=== PATIENT | male | born 1940 | race Caucasian/White ===

== ENCOUNTER 2019-01-29 10:09 | Inpatient (IN) | payer OTHER ==
[~2019-01-29] VITALS: Ht 180.3 cm; Wt 80.7 kg
[~2019-01-29 10:09] MED LIST: BUSP10TA3 PO; DICL75TA5 PO; METH2.5T PO; MOME220A2 INH; OLOD4MIS2 IH; PRIM250T32 PO; SERT-131 PO
[2019-01-29 10:19] VITALS: BP_SYST 113
--- NOTE | 2019-01-29 10:27 | NUR ---
Patient to ER bed 6 to gown for evaluation. Side rails up. Report given to VARGAS De Jesus.
--- NOTE | 2019-01-29 10:50 | NUR ---
ER at bedside examining patient.
[2019-01-29] MEDS ORDERED: NACL 0.9% 1,000 ML IV ONE (10:52)
--- NOTE | 2019-01-29 10:52 | NUR ---
Patient arrived via POV with at bedside. Patient c/c of urinary frequency, pain and burning upon urination. No blood tinge per patient. Per , he was up and down every 30 minutes throughout the night. Patient states he only dribbled urine and had the urgency shortly after. Patient denies any penile discharge, or new sexual partners. Patient states no abdominal pain. Will continue to follow up and monitor.
[2019-01-29] MEDS ORDERED: D5W 1,000 ML IV ONE (11:15)
[2019-01-29 11:17] LABS: BASOPHILS # (AUTO) 0.1 K/uL (0.0-0.2); BASOPHILS % (AUTO) 0.2 % (0.0-2.0); LYMPHOCYTES # (AUTO) 0.5 K/uL (1.0-5.5); MEAN CORPUSCULAR HEMOGLOBIN 31 pg (27-31); MEAN CORPUSCULAR HGB CONC 34 % (32-36); MEAN CORPUSCULAR VOLUME 91 fL (79.0-98.0); MONOCYTES # (AUTO) 1.9 K/uL (0.0-1.0); MONOCYTES % (AUTO) 7.8 % (1.7-9.3); NEUTROPHILS # (AUTO) 21.5 K/uL (1.8-7.7); PLATELET COUNT (AUTO) 261 K/uL (130-430); RED BLOOD CELL COUNT(AUTO) 4.53 MIL/uL (4.2-6.2); RED CELL DISTRIBUTION WIDTH 14.9 % (9.0-15.0); WHITE BLOOD COUNT (AUTO) 23.9 K/uL (4.8-10.8)
--- NOTE | 2019-01-29 11:30 | NUR ---
# 20 gauge angiocath placed to LAC. Use of asceptic technique. Opsite placed over site. Blood return noted. Blood for lab drawn from site. Flushed with 10 cc of normal saline. No evidence of infiltration noted. Patient tolerated well.
[2019-01-29 11:53] LABS: ALANINE AMINOTRANSFERASE 92 U/L (12-78); ALBUMIN 3.3 g/dL (3.4-4.8); ANION GAP 9 (5-15); ASPARTATE AMINOTRANSFERASE 83 U/L (10-37); CALCIUM 8.6 mg/dL (8.4-11.0); CHLORIDE 95 mmol/L (98-107); CREATININE 1.05 mg/dL (0.55-1.30); GLUCOSE 137 mg/dL (70-99); SODIUM SERUM 129 mmol/L (136-145); TOTAL BILIRUBIN 0.7 mg/dL (0.0-1.0); UREA NITROGEN, BLOOD 30 mg/dL (8-21)
--- NOTE | 2019-01-29 12:30 | NUR ---
Patient able to provide urine, specimen sent to lab.
[2019-01-29 12:42] LABS: BILIRUBIN,URINE NEGATIVE (NEGATIVE); BLOOD, URINE 3+ (NEGATIVE); CLARITY/URINE HAZY (CLEAR); COLOR,URINE YELLOW (YELLOW); GLUCOSE,URINE NEGATIVE (NEGATIVE); KETONES,URINE NEGATIVE (NEGATIVE); LEUKOCYTE ESTERASE ,URINE 3+ (NEGATIVE); NITRITE, URINE POSITIVE (NEGATIVE); PROTEIN URINE TRACE (NEGATIVE); UROBILINOGEN,URINE 0.2 (0.2-1.0)
[2019-01-29 13:15] LABS: BACTERIA,URINE MANY /HPF (None Seen); RBC,URINE 20-50 /HPF (0-3); WBC,URINE 50-80 /HPF (0-3)
[2019-01-29] MEDS ORDERED: LEVOFLOXACIN 500 MG/D5W 100 ML IV ONE (14:00)
--- NOTE | 2019-01-29 14:21 | NUR ---
Patient states he feels like he had a temperature, 99.7 tympanic. Removed patient blankets. Patient receiving IV ABX.
[2019-01-29] MEDS ORDERED: NACL 0.9% 500 ML IV ONE (14:45)
--- NOTE | 2019-01-29 14:47 | NUR ---
3rd lactic acid draw order placed. Continuing to follow sepsis protocol.
[2019-01-29] MEDS ORDERED: ACETAMINOPHEN 500 MG TABLET PO ONE (15:00)
[2019-01-29] MEDS ORDERED: FOLI-43 PO (15:15)
--- NOTE | 2019-01-29 15:16 | NUR ---
Recheck on patients temperature of 100.7, given 1g of tylenol as ordered.
--- NOTE | 2019-01-29 15:20 | NUR ---
Medication reconciliation completed with information provided by Patient's . Any prior medication reconciliation on file was reviewed and corrected.
--- NOTE | 2019-01-29 15:31 | NUR ---
Patient will be admitted to care of Dr. Grace. Admitted to Med/Surg unit. Awaiting room assignment by extension service specialist in charge. Belongings list completed. Summary report printed. Report will be given at bedside.
--- NOTE | 2019-01-29 16:10 | NUR ---
ADMISSION NOTE Received patient from ER via chip, received report from Liza KAYE. Patient admitted with diagnosis of Sepsis. Patient oriented to hospital routine, call light, toileting and safety-patient verbalized understanding.
[2019-01-29 17:00] VITALS: BP_SYST 108
[2019-01-29] MEDS ORDERED: ONDANSETRON HCL 4 MG/2 ML VIAL IVP PRN (17:00)
[2019-01-29] MEDS ORDERED: MORPHINE 2 MG/ML INJ. SYRINGE IVP PRN (17:00)
--- NOTE | 2019-01-29 17:00 | NUR ---
RN OPENING NOTE RECEIVED SBAR REPORT FROM ADMISSION NURSE AT BEDSIDE. PT AAOX4, VS STABLE ON ROOM AIR, NO COMPLAINT OF PAIN. PT'S AT BEDSIDE.
[2019-01-29 17:30] VITALS: BP_SYST 110
[2019-01-29] MEDS: PIPERACILLIN/TAZO 3.375/DEX-IS 50 ML IV SCH ×2 (18:10→23:04)
[2019-01-29] MEDS: NACL 0.9% 1,000 ML IV SCH (18:10)
--- NOTE | 2019-01-29 18:49 | NUR ---
RN CLOSING NOTE. PT RESTING IN BED WITH NO COMPLAINT OF DISTRESS. BED IN LOWEST POSITION, BED ALARM ACTIVE, CALL LIGHT WITHIN REACH.
--- NOTE | 2019-01-29 19:40 | NUR ---
OPENING NOTES Pt and endorsement received from day shift nurse. Pt is awake, alert and lying in bed. Pt on IVF of NS at 100ml/hr and infusing well on right AC G20. No complains of pain or discomfort at this time. No signs of acute distress or SOB noted. Encouraged to use call light when needed. Safety precautions in place with 3 side rails up, bed alarm on, locked and in lowest position. Call light with pt. Will continue to monitor.
[2019-01-29 20:50] VITALS: BP_SYST 131
[2019-01-29] MEDS: busPIRone HCL 5 MG TABLET PO SCH (20:53)
[2019-01-29] MEDS: PRIMIDONE 250 MG TABLET PO SCH (20:53)
[2019-01-29] MEDS: ACETAMINOPHEN 325 MG TABLET PO PRN (20:54)
--- NOTE | 2019-01-29 20:54 | NUR ---
TYLENOL 650MG GIVEN Pt had a fever with a temp of 102.1. Tylenol 650mg PO given as ordered. Cold packs covered in towel placed under the head. Thick blankets removed. IVF patent and infusing well. No signs of acute distress or SOB noted. Safety precautions in place and call light with pt. Will continue to monitor.
--- NOTE | 2019-01-29 22:00 | NUR ---
ROUNDS Rechecked temp and is 100.7. Pt refused cold packs instead gave him cold wash cloth and place on top of his head. Encouraged pt to drink more water, pt verbalizes understanding. Safety precautions in place and call light with pt. Will continue to monitor.
--- NOTE | 2019-01-29 23:00 | NUR ---
ROUNDS Rechecked temp and is 99.8. No signs of acute distress or SOB noted. IVF infusing well. Safety precautions in place and call light with pt. Will continue to monitor.
--- NOTE | 2019-01-29 23:53 | NUR ---
PAGED PAGING THE GRINDER TENDER PHYSICIAN DR. ABRAMS, SPOKE WITH JAZMINE
--- NOTE | 2019-01-30 00:24 | NUR ---
PAGED x2 SECOND PAGE SENT OUT TO THE HOP PICKER PHYSICIAN
--- NOTE | 2019-01-30 00:45 | NUR ---
SPOKE TO DR. ABRAMS Spoke to Dr. Abrams regarding pt unable to sleep and wants sleeping pill. Dr. Abrams ordered Ambien 5mg PO HS PRN for insomnia. Read back order and will carry out.
[2019-01-30 01:02] VITALS: BP_SYST 129
[2019-01-30] MEDS: ZOLPIDEM TARTRATE 5 MG TABLET PO PRN ×2 (01:09→21:07)
[2019-01-30] MEDS: NACL 0.9% 1,000 ML IV SCH ×3 (04:21→23:00)
[2019-01-30] MEDS: ACETAMINOPHEN 325 MG TABLET PO PRN ×3 (04:27→23:45)
--- NOTE | 2019-01-30 04:27 | NUR ---
TYLENOL 650MG GIVEN Pt had a low grade fever with a temp of 100.7. Tylenol 650mg PO given as ordered. Cold wash cloths placed under the head. IVF infusing well. No signs of acute distress or SOB noted. Safety precautions in place and call light with pt. Will continue to monitor.
--- NOTE | 2019-01-30 05:27 | NUR ---
ROUNDS Rechecked temp and is 98.9. No complains of pain and no signs of acute distress noted. IVF infusing well. Safety precautions in place and call light with pt. Will continue to monitor.
[2019-01-30] MEDS: PIPERACILLIN/TAZO 3.375/DEX-IS 50 ML IV SCH ×4 (05:28→23:46)
[2019-01-30 06:10] LABS: HEMATOCRIT 37.1 % (36-54); HEMOGLOBIN 12.5 g/dL (14.0-18.0); MEAN CORPUSCULAR HEMOGLOBIN 31 pg (27-31); MEAN CORPUSCULAR HGB CONC 34 % (32-36); MEAN CORPUSCULAR VOLUME 91 fL (79.0-98.0); PLATELET COUNT (AUTO) 205 K/uL (130-430); RED BLOOD CELL COUNT(AUTO) 4.09 MIL/uL (4.2-6.2); WHITE BLOOD COUNT (AUTO) 20.4 K/uL (4.8-10.8)
[2019-01-30 06:38] LABS: ALANINE AMINOTRANSFERASE 64 U/L (12-78); ALBUMIN 2.4 g/dL (3.4-4.8); ASPARTATE AMINOTRANSFERASE 47 U/L (10-37); CALCIUM 8.1 mg/dL (8.4-11.0); CHLORIDE 100 mmol/L (98-107); CREATININE 0.98 mg/dL (0.55-1.30); GLUCOSE 117 mg/dL (70-99); POTASSIUM 3.6 mmol/L (3.5-5.1); SODIUM SERUM 134 mmol/L (136-145); TOTAL BILIRUBIN 0.4 mg/dL (0.0-1.0); UREA NITROGEN, BLOOD 20 mg/dL (8-21)
--- NOTE | 2019-01-30 07:03 | NUR ---
CLOSING NOTES Pt is resting in bed with both eyes closed, with visible chest rise and fall with unlabored breathing noted. No complains of pain or discomfort. No signs of acute distress or SOB noted. IVF patent and infusing well. All needs attended throughout the shift. Safety precautions maintained with 3 side rails up, bed alarm on, locked and in lowest position. Call light with pt. Will endorse to day shift nurse.
[2019-01-30 07:17] LABS: ANION GAP 9 (5-15)
--- NOTE | 2019-01-30 07:50 | NUR ---
AM ASSESSMENT. PT ABLE TO EXPRESS BASIC NEEDS, GETS TO THE BATHROOM WITH MILD ASSIST, WALKER READILY AVAILABLE, IVF INFUSING NS AT 100 ML PER HR, SITE CLEAR, TEMP 99.8, NO COMPLAINTS OF BODY DISCOMFORT ASIDE FROM TREMORS TO HIS HANDS WHEN GETTING OUT OF HIS BED.
[2019-01-30 08:00] VITALS: BP_SYST 127
[2019-01-30] MEDS: PRIMIDONE 250 MG TABLET PO SCH ×2 (09:00→20:19)
[2019-01-30] MEDS: FOLIC ACID 1 MG TABLET PO SCH (09:06)
[2019-01-30] MEDS: busPIRone HCL 5 MG TABLET PO SCH ×2 (09:08→20:19)
[2019-01-30] MEDS: SERTRALINE HCL 50 MG TABLET PO SCH (09:08)
[2019-01-30 10:18] LABS: BAND % (MANUAL) 5 % (0-6); LYMPHOCYTES % (MANUAL) 4 % (20-46)
[2019-01-30 10:19] LABS: BASOPHILS % (MANUAL) 0 % (0-2); EOSINOPHILS % (MANUAL) 0 % (0-7); MONOCYTES % (MANUAL) 2 % (0-11)
--- NOTE | 2019-01-30 11:04 | NUR ---
CONSULTATION PAGED/CALLED Reason for Consultation: [] SEPSIS Person Who was Notified: [] CHERRIE Consulting Physician: [] DR AGUSTIN AKHTAR Supervisor Packing Room Specialty: [] ID Ordering Physician: [] DR URIOSTEGUI
[2019-01-30 12:00] VITALS: BP_SYST 140
[2019-01-30] MEDS ORDERED: GENTAMICIN SULFATE 300 MG in NS 100 ML IV ONE (12:00)
--- NOTE | 2019-01-30 14:13 | NUR ---
PAIN. PT LYING DOWN IN HIS BED, HAVING CONVERSATION WITH AT BEDSIDE, PT COMPLAINED OF HEADACHE, 6/10 SCALE, TEMP 99.9, MEDICATED WITH TYLENOL 650 MG TABLET.
--- NOTE | 2019-01-30 15:50 | NUR ---
ULTRA SOUND. PT JUST HAD KIDNEY ULTRASOUND AT BEDSIDE.
[2019-01-30 16:00] VITALS: BP_SYST 129
--- NOTE | 2019-01-30 17:04 | NUR ---
Dietitian Recommendations * Recommend continuing regular diet LP, RD Please refer to Nutrition Assessment for details.
--- NOTE | 2019-01-30 17:45 | NUR ---
ACTIVITY. PT SEEN COMING BACK TO HIS BED, USING A WALKER FOR SUPPORT, ALL NEEDS ATTENDED.
--- NOTE | 2019-01-30 18:50 | NUR ---
IV. NEW IV INSERTED IN LEFT HAND, 20 GAUGE CATHETER USED, GOOD BLOOD RETURN NOTED. IV IN LEFT A/C LEAKING AND D/CD.
--- NOTE | 2019-01-30 19:10 | NUR ---
OPENING NOTES Late entry due to patient care. Bedside report received from dayshift nurse. Patient received lying in bed, AOx4, watching TV. No s/s of acute distress noted. Patient denies any pain or discomfort. Breathing is even and unlabored. IVF infusing well. IV site patent. Call light with patient, instructed to call for any assistance, patient verbalized understanding. Bed is locked and at lowest position. Will continue to monitor.
[2019-01-30 20:00] VITALS: BP_SYST 137
--- NOTE | 2019-01-30 21:00 | NUR ---
ROUNDS/SLEEPING PILL Patient requested to have sleeping pill. Ambien to be administered per PRN order. Call light with patient. Will continue to monitor.
--- NOTE | 2019-01-30 23:00 | NUR ---
ROUNDS Patient in bed sleeping at this time. No signs of discomfort noted. Chest rise and fall even bilaterally. Call light with patient. Will continue to monitor.
--- NOTE | 2019-01-31 01:00 | NUR ---
ROUNDS Patient asleep. IVF infusing well. Call light with patient. Will continue to monitor.
--- NOTE | 2019-01-31 03:00 | NUR ---
ROUNDS Patient in bed sleeping at this time. No s/s of acute distress noted. Breathing even and unlabored. Call light with patient. Will continue to monitor.
[2019-01-31 03:31] VITALS: BP_SYST 149
--- NOTE | 2019-01-31 05:00 | NUR ---
IVF/IV ANTIBIOTICS New bag of IV and scheduled IV antibiotics hung at this time. IV site patent, no signs of infiltration or infection noted. Call light with patient. Will continue to monitor.
[2019-01-31] MEDS: PIPERACILLIN/TAZO 3.375/DEX-IS 50 ML IV SCH ×3 (05:05→17:53)
[2019-01-31] MEDS: NACL 0.9% 1,000 ML IV SCH ×2 (05:06→21:25)
--- NOTE | 2019-01-31 06:47 | NUR ---
CLOSING NOTES Patient in bed sleeping at this time. No s/s of acute distress noted. Breathing even and unlabored. IVF infusing well. IV site patent, no signs of infiltration or infection noted. All needs met throughout shift. Fall and safety precautions maintained throughout shift. Will continue to monitor until patient care is endorsed to oncoming dayshift nurse.
[2019-01-31 06:54] LABS: ALANINE AMINOTRANSFERASE 47 U/L (12-78); ALBUMIN 2.3 g/dL (3.4-4.8); ANION GAP 11 (5-15); ASPARTATE AMINOTRANSFERASE 28 U/L (10-37); CHLORIDE 96 mmol/L (98-107); CREATININE 0.73 mg/dL (0.55-1.30); GLUCOSE 126 mg/dL (70-99); POTASSIUM 3.1 mmol/L (3.5-5.1); SODIUM SERUM 127 mmol/L (136-145); TOTAL BILIRUBIN 0.5 mg/dL (0.0-1.0); UREA NITROGEN, BLOOD 16 mg/dL (8-21)
--- NOTE | 2019-01-31 07:50 | NUR ---
AM ASSESSMENT. PT IN BED, TEMP TAKEN BY TEMPORAL THERMOMETER 101, THEN USED AN ORAL THERMOMETER 98.4, NO COMPLAINTS OF BODY DISCOMFORTS, IVF INFUSING NS AT 100 ML PER HR, WILL CONTINUE TO MONITOR.
[2019-01-31 08:00] VITALS: BP_SYST 152
[2019-01-31 08:56] LABS: HEMOGLOBIN 12.8 g/dL (14.0-18.0); MEAN CORPUSCULAR HEMOGLOBIN 30 pg (27-31); MEAN CORPUSCULAR HGB CONC 34 % (32-36); MEAN CORPUSCULAR VOLUME 91 fL (79.0-98.0); PLATELET COUNT (AUTO) 204 K/uL (130-430); RED CELL DISTRIBUTION WIDTH 14.8 % (9.0-15.0)
[2019-01-31 08:57] LABS: BASOPHILS % (AUTO) 0.2 % (0.0-2.0); EOSINOPHILS % (AUTO) 0.1 % (0.0-4.0); LYMPHOCYTES # (AUTO) 0.4 K/uL (1.0-5.5); LYMPHOCYTES % (AUTO) 2.3 % (20.5-51.5); MONOCYTES # (AUTO) 0.6 K/uL (0.0-1.0); MONOCYTES % (AUTO) 3.2 % (1.7-9.3); NEUTROPHILS # (AUTO) 17.3 K/uL (1.8-7.7); NEUTROPHILS % (AUTO) 94.2 % (40.0-70.0); WHITE BLOOD COUNT (AUTO) 18.4 K/uL (4.8-10.8)
[2019-01-31] MEDS: SERTRALINE HCL 50 MG TABLET PO SCH (09:10)
[2019-01-31] MEDS: FOLIC ACID 1 MG TABLET PO SCH (09:10)
[2019-01-31] MEDS: busPIRone HCL 5 MG TABLET PO SCH ×2 (09:10→21:25)
[2019-01-31] MEDS: PRIMIDONE 250 MG TABLET PO SCH ×2 (09:11→21:26)
--- NOTE | 2019-01-31 10:15 | NUR ---
ACTIVITY. PT GETS OUT OF BED USING A WALKER, TO THE BATHROOM, HX JOEY KNEE SURGERY.
[2019-01-31] MEDS ORDERED: LACT1CAP57 PO (11:58)
[2019-01-31] MEDS ORDERED: LEVAQUIN PO (11:58)
[2019-01-31 12:00] VITALS: BP_SYST 147
[2019-01-31] MEDS: LEVOFLOXACIN 500 MG/D5W 100 ML IV SCH (12:33)
--- NOTE | 2019-01-31 13:17 | NUR ---
D/C. PT MADE AWARE OF DISCHARGING HIM HOME. HE STATED "MY DOCTOR ASKED ME IF I WANT TO GO HOME, I SAID YES, THEN I CALLED MY , SHE SAID SINCE MY WBC IS STILL ELEVATED, SHE WILL FEEL A LOT BETTER KNOWING THAT I'M IN GOOD HANDS OVER HERE. PAGED DR Evgeny LAGUNAS, NOTIFIED MD ABOUT THE CONVERSATION, ORDERED TO CANCEL DISCHARGE HOME.
[2019-01-31 16:00] VITALS: BP_SYST 143
--- NOTE | 2019-01-31 18:15 | NUR ---
DIET. DINNER TRAY SERVED, HAD STEAMED CAULIFLOWER, MASHED POTATOES, GRAVY, MEAT PATTIES, SLICED STRAWBERRIES. HE PUT ASIDE THE FRESH FRUIT OFF HIS TRAY. HAD A GOOD APPETITE.
[2019-01-31 20:30] VITALS: BP_SYST 145
--- NOTE | 2019-01-31 22:15 | NUR ---
ASSIST PATIENT OUT OF BED USES FFW , assist to ambulate FALL MEASURES TAKEN & EFFECTIVE .
--- NOTE | 2019-02-01 | NUR ---
DR Alden AKHTAR HERE TO SEE PATIENT & @ the bedside .
[2019-02-01] MEDS: PIPERACILLIN/TAZO 3.375/DEX-IS 50 ML IV SCH (01:08)
[2019-02-01 01:14] VITALS: BP_SYST 156
--- NOTE | 2019-02-01 03:43 | NUR ---
HOURLY ROUNDING patient resting call fontenot with patient , chest movement symmetrical assist as needed continue to monitor .
--- NOTE | 2019-02-01 03:47 | NUR ---
SAFETY MEASURES implemented fall PRECAUTIONS intact call system fontenot with patient .
--- NOTE | 2019-02-01 05:31 | NUR ---
PATIENT RESTING VERBALLY RESPONSIVE CALL LOPEZ WITH PATIENT FALL MEASURES IMPLEMENTED ABLE TO SELF REPOSITION & TURN TOLERATE .
[2019-02-01] MEDS: NACL 0.9% 1,000 ML IV SCH (06:25)
[2019-02-01 06:38] LABS: BASOPHILS % (AUTO) 0.2 % (0.0-2.0); EOSINOPHILS # (AUTO) 0.1 K/uL (0.0-0.4); EOSINOPHILS % (AUTO) 0.7 % (0.0-4.0); HEMATOCRIT 37.4 % (36-54); HEMOGLOBIN 12.7 g/dL (14.0-18.0); LYMPHOCYTES # (AUTO) 0.6 K/uL (1.0-5.5); LYMPHOCYTES % (AUTO) 5.4 % (20.5-51.5); MEAN CORPUSCULAR HEMOGLOBIN 30 pg (27-31); MEAN CORPUSCULAR HGB CONC 34 % (32-36); MEAN CORPUSCULAR VOLUME 90 fL (79.0-98.0); MONOCYTES # (AUTO) 0.8 K/uL (0.0-1.0); MONOCYTES % (AUTO) 7.1 % (1.7-9.3); NEUTROPHILS # (AUTO) 10.2 K/uL (1.8-7.7); NEUTROPHILS % (AUTO) 86.6 % (40.0-70.0); PLATELET COUNT (AUTO) 203 K/uL (130-430); RED BLOOD CELL COUNT(AUTO) 4.17 MIL/uL (4.2-6.2); RED CELL DISTRIBUTION WIDTH 14.8 % (9.0-15.0)
[2019-02-01 06:43] LABS: WHITE BLOOD COUNT (AUTO) 11.8 K/uL (4.8-10.8)
[2019-02-01 06:56] LABS: ALANINE AMINOTRANSFERASE 42 U/L (12-78); ALBUMIN 2.3 g/dL (3.4-4.8); ANION GAP 7 (5-15); ASPARTATE AMINOTRANSFERASE 24 U/L (10-37); CALCIUM 8.2 mg/dL (8.4-11.0); CHLORIDE 95 mmol/L (98-107); CREATININE 0.73 mg/dL (0.55-1.30); GLUCOSE 124 mg/dL (70-99); POTASSIUM 3.1 mmol/L (3.5-5.1); SODIUM SERUM 126 mmol/L (136-145); TOTAL BILIRUBIN 0.3 mg/dL (0.0-1.0); UREA NITROGEN, BLOOD 13 mg/dL (8-21)
--- NOTE | 2019-02-01 07:20 | NUR ---
AM ROUNDS: PATIENT ON THE BED,AWAKE,ALERT AND ORIENTED X3. RECEIVED REPORT FROM NIGHT NURSE NIYA Peña CALL LIGHT WITH IN REACH. BED LOCKED AT LOWEST POSITION. STABLE CONDITION.
[2019-02-01 08:46] VITALS: BP_SYST 149
[2019-02-01] MEDS: SERTRALINE HCL 50 MG TABLET PO SCH (08:56)
[2019-02-01] MEDS: busPIRone HCL 5 MG TABLET PO SCH (08:57)
[2019-02-01] MEDS: PRIMIDONE 250 MG TABLET PO SCH (08:58)
--- NOTE | 2019-02-01 09:00 | NUR ---
MED PASS: TOOK ALL HIS MORNING MEDS.NO ADVERSE REACTIONS NOTED.
[2019-02-01] MEDS ORDERED: POTASSIUM CHLORIDE 20 MEQ TAB.PRT.SR PO ONE (11:00)
--- NOTE | 2019-02-01 11:30 | NUR ---
RN ROUNDS: patient sitting on the chair.waiting for his ride,with no problem.call light with in reach.
[2019-02-01] MEDS: LEVOFLOXACIN 500 MG/D5W 100 ML IV SCH (11:50)
[2019-02-01 12:35] VITALS: BP_SYST 130
[2019-02-01 12:38] VITALS: BP_SYST 130
--- NOTE | 2019-02-01 12:41 | NUR ---
LUNCH: LUNCH SERVED BUT PATIENT WILL EAT OUT WITH .WAITING FOR HIS RIDE HOME.
--- NOTE | 2019-02-01 14:30 | NUR ---
D/C Patient Patient given medication reconciliation form and D/C instructions. Exit Care provided. Patient verbalized understanding. MD discussed with patient the results and treatment provided.Reeducated patient's with dc instructions and understands the instructions. Patient uses front wheel walker for walking, for discharge to home. Patient in stable condition, ID band removed. IV catheter removed, intact and dressing applied, no active bleeding. Rx of levaquin and culturelle po given. Patient educated on pain management.Accompanied home by in stable condition. All belongings sent with patient.
== END 2019-02-01 14:30 | disposition home or self-care (01) | DRG 872 ==
LOC: SED 10:09 → SMU 15:21
PROVIDERS: ADMIT Internal Medicine Hospice and Palliative Medicine; ATTEND Internal Medicine Hospice and Palliative Medicine
DX: A41.9 Sepsis, unspecified organism (principal); E87.1 Hypo-osmolality and hyponatremia; N12 Tubulo-interstitial nephritis, not specified as acute or chronic; J44.9 Chronic obstructive pulmonary disease, unspecified; E86.0 Dehydration; Z96.653 Presence of artificial knee joint, bilateral; R65.20 Severe sepsis without septic shock; F32.9 Major depressive disorder, single episode, unspecified; M06.9 Rheumatoid arthritis, unspecified; Z79.899 Other long term (current) drug therapy; N28.1 Cyst of kidney, acquired
CPT/HCPCS: 36415; 71045; 76770; 80053; 81000-TC; 83605; 85007; 85025; 85027; 87040-TC; 87086; 87186-TC; 96361; 96365; 99291; J1580; J1956; J2543; J7030; J7060